=== PATIENT | female | born 1985 ===

== ENCOUNTER 2018-04-30 07:24 | Day surgery (SDC) | payer OTHER ==
[2018-04-01 09:47] VITALS: BMI 40.7
[2018-04-30] MEDS ORDERED: Propofol 10 mg/ml Inj (20 ML) ONE ×2 (09:59→10:20)
[2018-04-30] MEDS ORDERED: Lactated Ringer's 500 ML IV ONE (10:07)
--- NOTE | 2018-04-30 10:12 | CP.SDSHP ---
Same Day Surgery H & P - History Proposed Procedure: endoscopy Pre-Op Diagnosis: reflux, esophagitis - Previous Medical/Surgical History Pulmonary: Asthma - Allergies Allergies: Allergies shellfish derived Allergy (Verified 04/30/18 07:55) ANAPHYLAXIS wheat Adverse Reaction (Verified 04/30/18 07:55) RASH - Physical Exam Vital Signs: Vital Signs 04/30/18 07:50 Temperature 97.8 F Pulse Rate 73 Respiratory 19 Rate Blood Pressure 122/86 O2 Sat by Pulse 97 Oximetry Mental Status: Alert & Oriented x3 Neuro: WNL Heart: WNL Lungs: WNL GI: WNL - {Optional Preform as Required} Abdomen: WNL - Impression Impression: reflux, esophagitis, gastritis Pt. Evaluated Today:Candidate for Anesthesia & Procedure: Yes - Date & Time Date: 04/30/18 Time: 10:00 Short Stay Discharge - Short Stay Discharge Admitting Diagnosis/Reason for Visit: ESOPHAGEAL REFLUX Disposition: HOME/ ROUTINE Referrals: Debbie Sotelo MD [Primary Care Provider] -
[2018-04-30 10:16] VITALS: O2SAT 100
[2018-04-30 12:23] VITALS: TEMP 98
[2018-04-30 12:30] VITALS: BP 140/88; PULSE 70; RESP 21
== END 2018-04-30 11:45 | disposition home or self-care (01) ==
LOC: C.ENDO 07:24
PROVIDERS: ATTEND Internal Medicine Gastroenterology
DX: K21.9 Gastro-esophageal reflux disease without esophagitis (principal); K44.9 Diaphragmatic hernia without obstruction or gangrene; K31.9 Disease of stomach and duodenum, unspecified; K29.70 Gastritis, unspecified, without bleeding
CPT/HCPCS: 43239; 84703; 88305; 88342; J2001; J2704; J7120

== ENCOUNTER 2018-09-24 09:41 | Day surgery (SDC) | payer OTHER ==
[2018-04-01 09:47] VITALS: BMI 40.7
[2018-09-24 10:48] VITALS: O2SAT 100
[2018-09-24] MEDS ORDERED: Lactated Ringer's 500 ML IV ONE ×3 (10:57)
--- NOTE | 2018-09-24 11:31 | CP.SDSHP ---
Same Day Surgery H & P - History Proposed Procedure: endoscopy Pre-Op Diagnosis: reflux, gastritis - Previous Medical/Surgical History Pulmonary: Asthma Endocrine/Metabolic: Obesity - Allergies Allergies: Allergies shellfish derived Allergy (Verified 09/24/18 10:42) ANAPHYLAXIS wheat Adverse Reaction (Verified 09/24/18 10:42) RASH - Physical Exam Vital Signs: Vital Signs 09/24/18 10:44 Temperature 98 F Pulse Rate 74 Respiratory 19 Rate Blood Pressure 124/78 O2 Sat by Pulse 100 Oximetry Mental Status: Alert & Oriented x3 Neuro: WNL Heart: WNL Lungs: WNL GI: WNL - {Optional Preform as Required} Abdomen: WNL - Impression Impression: gastritis, reflux Pt. Evaluated Today:Candidate for Anesthesia & Procedure: Yes - Date & Time Date: 09/24/18 Time: 11:15 Short Stay Discharge - Short Stay Discharge Admitting Diagnosis/Reason for Visit: ESOPHAGEAL REFLUX Disposition: HOME/ ROUTINE
[2018-09-24] MEDS ORDERED: Propofol 10 mg/ml Inj (20 ML) ONE (11:37)
[2018-09-24 15:05] VITALS: TEMP 97.9
[2018-09-24 15:16] VITALS: BP 120/71; PULSE 75; RESP 20
== END 2018-09-24 13:30 | disposition home or self-care (01) ==
LOC: C.ENDO 09:41
PROVIDERS: ATTEND Internal Medicine Gastroenterology
DX: K29.50 Unspecified chronic gastritis without bleeding (principal); K44.9 Diaphragmatic hernia without obstruction or gangrene; R10.13 Epigastric pain; J45.909 Unspecified asthma, uncomplicated; E66.9 Obesity, unspecified
CPT/HCPCS: 43239; 84703; 88305; 88342; J2001; J2704; J7120